=== PATIENT | male | born 1960 | race Caucasian/White ===

== ENCOUNTER → 2017-10-06 | Outpatient (CLI) | payer BC ==
[~2017-10-06] MED LIST: ALEV220T14 PO; HYDR-3516 PO; VITA10004 PO; VITA500C18 PO; ZANT150T2 PO
[2017-10-06 11:54] LABS: AUTOMATED NEUTROPHIL # 6.2 TH/MM3 (1.8-7.7); BASOPHIL % 0.5 % (0.0-2.0); EOSINOPHIL # 0.1 TH/MM3 (0-0.4); EOSINOPHIL % 1.1 % (0.0-4.0); HEMO FLAGS DIFF FINAL; LYMPH % 15.5 % (9.0-44.0); LYMPHOCYTE # 1.3 TH/MM3 (1.0-4.8); MEAN CELL VOLUME 87.6 FL (80.0-100.0); MEAN CORPUSCULAR HGB CONC 34.3 % (32.0-36.0); MONO % 10.2 % (0.0-8.0); NEUT % 72.7 % (16.0-70.0); PLATELET COUNT 189 TH/MM3 (150-450); RED BLOOD COUNT 5.82 MIL/MM3 (4.50-5.90); RED CELL DISTRIBUTION WIDTH 13.8 % (11.6-17.2); WHITE BLOOD COUNT 8.6 TH/MM3 (4.0-11.0)
[2017-10-06 11:57] LABS: BACTERIA, URINE RARE /hpf; BLOOD, URINE NEG (NEG); COMMENT (UR) CULT NOT INDICATED; CULTURE IF INDICATED CULT NOT INDICATED; GLUCOSE,URINE NEG (NEG); KETONE, URINE NEG (NEG); MUCUS URINE FEW /lpf (OCC); NITRITE,URINE NEG (NEG); URINE COLOR YELLOW (YELLW/STRAW)
[2017-10-06 12:06] LABS: APTT (PATIENT) 27.5 SEC (24.3-30.1); PROTHROMBIN TIME - PATIENT 11.4 SEC (9.8-11.6)
[2017-10-06 12:25] LABS: ANION GAP 8 MEQ/L (5-15); AST (GOT) 18 U/L (15-37); BICARBONATE 28.1 MEQ/L (21.0-32.0); BLOOD UREA NITROGEN 5 MG/DL (7-18); CHLORIDE 106 MEQ/L (98-107); GLOMERULAR FILTRATION RATE 70 ML/MIN (>89); GLUCOSE,FASTING 89 MG/DL (74-99); POTASSIUM 3.4 MEQ/L (3.5-5.1); SODIUM (NA) 142 MEQ/L (136-145)
[2017-10-06 12:28] LABS: ALKALINE PHOSPHATASE 95 U/L (45-117); ALT (GPT) 43 U/L (12-78)
--- NOTE | 2017-10-06 15:47 | RADRPT ---
EXAM DATE/TIME: 10/06/2017 11:51 This report includes an Addendum and supersedes previous reports for this exam. [place] COMPARISON: No previous studies available for comparison. INDICATIONS : Evaluate for communicable diseases, Pneumonia, and Pneumothorax. Preop Colon Resection MEDICAL HISTORY : None. SURGICAL HISTORY : None. ENCOUNTER: Initial ACUITY: 1 day PAIN SCORE: 0/10 LOCATION: Bilateral chest FINDINGS: PA and lateral views of the chest demonstrate the lungs to be symmetrically aerated without evidence of mass, infiltrate or effusion. The cardiomediastinal contours are unremarkable. Osseous structure s are intact. CONCLUSION: 1. No acute cardiopulmonary findings. Jonatan Hargrove MD on October 06, 2017 at 15:45 Board Certified Radiologist. This report was verified electronically. ADDENDUM: The conclusion of the examination was changed. It is now corrected. There are no acute cardiopulmonar y findings. Jonatan Hargrove MD on October 07, 2017 at 9:35 Board Certified Radiologist. This report was verified electronically.
--- NOTE | 2017-10-07 15:21 | EKG ---
Date Performed: 10/06/2017 Time Performed: 11:00:15 PTAGE: 57 years EKG: Sinus rhythm NORMAL ECG NO PREVIOUS TRACING DOCTOR: Remedios Aquino Interpretating Date/Time 10/07/2017 15:20:30
== END ==
LOC: CPRE 10:36
PROVIDERS: ATTEND Colon & Rectal Surgery
DX: Z01.810 Encounter for preprocedural cardiovascular examination (principal); Z01.811 Encounter for preprocedural respiratory examination; Z01.812 Encounter for preprocedural laboratory examination; Z79.01 Long term (current) use of anticoagulants; C18.9 Malignant neoplasm of colon, unspecified
CPT/HCPCS: 36415; 71020; 80053; 81001; 82378; 85025; 85610; 85730; 93005

== ENCOUNTER 2017-10-08 11:03 | Inpatient (IN) | payer BC, OTHER ==
[~2017-10-08] VITALS: Ht 154.9 cm; Wt 56.0 kg
[2017-10-08] VITALS (7 sets, daily range): BP systolic 132–142; BP diastolic 88–100; PULSE 81–117; RESP 17; TEMP 97.3; O2SAT 94–96
[~2017-10-08 11:03] MED LIST changes: -HYDR-3516 PO; -ZANT150T2 PO
--- NOTE | 2017-10-08 11:11 | PD.HP.UP ---
H&P Update Note The Pre-Admit History and Physical Examination regarding the above named patient was reviewed (including, but not limited to, vital signs, heart, lungs, co-morbid conditions), and upon re-examination it is noted that: the patient's condition has not significantly changed since the last examination. Lusi Okeefe MD Oct 08, 2017 11:11
[2017-10-08] MEDS ORDERED: POVIDONE IODINE 5% (ANTISEPSIS KIT) 4 APPLICATIONS EACH NARE PRN (12:45)
[2017-10-08] MEDS ORDERED: CHLORHEXIDINE GLUCONATE 2 % 1 PACK (2 CLOTHS) TOPICAL PRN (12:45)
[2017-10-08] MEDS ORDERED: METOPROLOL TARTRATE 25 MG TAB PO PRN (12:45)
[2017-10-08] MEDS ORDERED: LACTATED RINGER'S 1000 ML IV PRN (12:45)
[2017-10-08] MEDS ORDERED: ALVIMOPAN 12 MG CAPSULE - On Call PO SCH (12:45)
[2017-10-08] MEDS ORDERED: SODIUM CHLORID 0.9% 500 ML IV PRN (12:45)
[2017-10-08] MEDS ORDERED: INSULIN HUMAN REGULAR 1,000 UNITS/10 ML VIAL SQ PRN (12:45)
[2017-10-08] MEDS ORDERED: ZANT150T2 PO (12:50)
[2017-10-08] MEDS ORDERED: ceFAZolin 1,000 MG/NS 100 ML IV SCH ×2 (13:00)
[2017-10-08] MEDS ORDERED: METRONIDAZOLE 500 MG/100 ML ISONTONIC SOLN IV SCH (13:00)
[2017-10-08] MEDS ORDERED: BUPIVACAINE HCL PF 0.5% 30 ML VIAL ONE ×5 (13:00→14:23)
[2017-10-08] MEDS: ALVIMOPAN 12 MG CAPSULE - Post-op dosing PO SCH (13:12)
[2017-10-08] MEDS: D5-NS + KCL 20 MEQ INJ 1,000 ML IV SCH ×2 (16:01→21:00)
[2017-10-08] MEDS ORDERED: POTASSIUM CHLOR 40 MEQ PREMIX 100 ML IV PRN (16:15)
[2017-10-08] MEDS ORDERED: ENALAPRILAT 2.5 MG/2 ML VIAL IV PUSH PRN (16:15)
[2017-10-08] MEDS ORDERED: NALOXONE HCL 0.4 MG/ML AMP IV PUSH PRN (16:15)
[2017-10-08] MEDS ORDERED: POTASSIUM CHLOR 20 MEQ PREMIX 100 ML IV PRN (16:15)
[2017-10-08] MEDS ORDERED: ACETAMINOPHEN/HYDROcodone 325 MG/5 MG TAB PO PRN ×2 (16:15)
[2017-10-08] MEDS ORDERED: Post-op Orders (for Pharmacy) MISC XX ONE (16:15)
[2017-10-08] MEDS ORDERED: BUPIVACAINE HCL PF 0.5% 30 ML VIAL NB SCH (16:15)
[2017-10-08] MEDS ORDERED: ONDANSETRON HCL 4 MG/2 ML VIAL IV PUSH PRN (16:15)
[2017-10-08] MEDS ORDERED: ACETAMINOPHEN 325 MG TAB PO PRN (16:15)
[2017-10-08] MEDS ORDERED: BENZOCAINE 6 MG/MENTHOL 10 MG LOZENGE BUCCAL PRN (16:15)
[2017-10-08] MEDS ORDERED: *morphine SULFATE 8 MG/ML PERIprocedure ONLY ONE (16:33)
[2017-10-08] MEDS ORDERED: DO NOT ADM ANY ANTICOAGULANT DRUGS PRN (16:45)
[2017-10-08] MEDS: MORPHINE SULFATE 30 MG/30 ML PCA IV SCH (16:58)
[2017-10-08] MEDS: metroNIDAZOLE 500 MG INJ 100 ML IV SCH (20:58)
[2017-10-08] MEDS: METOCLOPRAMIDE HCL 10 MG/2 ML VIAL IVS SCH (20:58)
[2017-10-08] MEDS: DEXT 5%-NACL 0.9% 1000 ML INJ 1,000 ML IV SCH (21:00)
[2017-10-08] MEDS: PCA - TOTAL MG MORPHINE DELIVERED PER SHIFT SCH (22:00)
[2017-10-09] VITALS (24 sets, daily range): BP systolic 122–185; BP diastolic 85–99; PULSE 72–132; RESP 18–19; TEMP 96.4–99.2; O2SAT 93–97
[2017-10-09] MEDS: D5-NS + KCL 20 MEQ INJ 1,000 ML IV SCH ×3 (04:28→22:08)
[2017-10-09] MEDS: metroNIDAZOLE 500 MG INJ 100 ML IV SCH ×2 (04:28→12:45)
[2017-10-09] MEDS: DEXT 5%-NACL 0.9% 1000 ML INJ 1,000 ML IV SCH ×3 (04:45→21:00)
[2017-10-09] MEDS: PCA - TOTAL MG MORPHINE DELIVERED PER SHIFT SCH ×3 (06:00→21:03)
--- NOTE | 2017-10-09 07:36 | MP ---
cc: CHRIS DIEHL M.D. DATE OF SURGERY October 08, 2017. PREOPERATIVE DIAGNOSIS Carcinoma of the rectosigmoid. PROCEDURE 1. Exploratory laparotomy with proctosigmoidectomy, omental flap. 2. Repair of abdominal wall hernia. POSTOPERATIVE DIAGNOSIS 1. Carcinoma of the rectosigmoid. 2. Abdominal wall hernia. SURGEON Dr. Diehl ASSESSMENT Dr. Lion Zambrano PROCEDURE The patient was placed in the supine position. After adequate general anesthesia his legs were placed in [place] stirrups and supported appropriately. The abdomen and perineum were then prepped with Betadine solution and draped in the usual sterile fashion. With Dr. Zambrano's assistance the abdomen was opened through an infraumbilical transverse incision encountering mesh along the midportion of the incision around the umbilical area. The abdomen was opened caudal to the mesh taking down adhesions to the parietal peritoneum. Quite a few omental adhesions were present to the mesh inside the peritoneal cavity. Loops of bowel were also stuck to the mesh requiring somewhat of a tedious dissection. After complete mobilization and exploration of the abdominal cavity, revealed the tumor palpable just above the peritoneal reflection with some serosal puckering. The tumor was not adherent to any surrounding structures. The proximal colon was palpated very carefully and felt to be pretty unremarkable. Small bowel was run from the ligament Treitz down to the ileocecal valve and felt to be normal. The liver was without palpable masses. The gallbladder was unremarkable. The stomach and duodenum were normal. The great vessels were of normal caliber and fairly soft. First the sigmoid colon was mobilized medially by dividing along the white line of Toldt. The left ureter was identified and carefully preserved. Dissection then proceeded up the left gutter taking the left colon off the retroperitoneum up toward the splenic flexure. The right retroperitoneal space was then opened and the bowel dissected off the presacral fascia. The pedicle for the superior hemorrhoidal vessels was identified and divided between Digna's obtaining hemostasis with Vicryl ties. Dissection then proceeded down, elevating the bowel off the presacral fascia preserving the presacral nerves. At a point in the proximal rectum adequate distance below the tumor the mesorectum was taken with electrocautery and the bowel divided between a pursestring suture device and a Mehrdad clamp. The bowel was then sized to reach the rectal pouch without tension and with good blood supply dividing the marginal artery at the appropriate point. The bowel was then finally divided in the proximal sigmoid between a pursestring suture device and a Mehrdad clamp. The ends of the bowel were sized to accept a 33-mm EEA stapling anvil and this was secured with a pursestring suture. Dr. Zambrano inserted the stapling instrument transanally under direct vision; it was advanced up to the end of the rectal pouch and the pursestring suture tied. The stapler was then reassembled, aligned properly, the bowel aligned properly and stapler closed and fired. Upon withdrawal two complete doughnuts of tissue were seen. Gentle insufflation confirmed an airtight anastomosis. The abdomen was then irrigated copiously with normal saline. A section of the omentum was passed down the left gutter to wrap around the anastomosis. Attention was then turned to the abdominal wall. The previously placed intraperitoneal mesh was removed creating a defect in the transverse incision. Additional hernia was also noted cephalad to the incision line and the omentum was taken out of the hernia and the defect closed intraperitoneally with a running #1 PDS suture. The anterior skin flap was elevated off the anterior rectus fascia for mobilization. This enabled the abdominal wall be closed in two layers using #1 PDS sutures to reapproximate the respective fascial layers. Anteriorly there was quite a bit of scar tissue and fibrosis but the tissues came together nicely without tension. After complete two-layer closure, The subcutaneous tissue was irrigated copiously and the skin closed with interrupted 3-0 Vicryl suture in a subcuticular fashion. The wound area was washed with normal saline and dried, sterile dressing of Telfa and gauze applied. It should be noted that a Anthony-Vallejo drain was placed down into the pelvis and brought up through the stab wound in the right lower quadrant and secured to the skin with a nylon suture. The patient tolerated the procedure quite well and was brought to the recovery room in stable condition. Sponge and needle counts were correct at the end of the procedure. MD SABRINA Theodore/JEAN /10:50 PM /7:15 AM
[2017-10-09 08:35] LABS: AUTOMATED NEUTROPHIL # 13.6 TH/MM3 (1.8-7.7); HEMATOCRIT 42.6 % (39.0-51.0); HEMO FLAGS DIFF FINAL; LYMPH % 5.4 % (9.0-44.0); LYMPHOCYTE # 0.9 TH/MM3 (1.0-4.8); MEAN CELL VOLUME 86.8 FL (80.0-100.0); MEAN CORPUSCULAR HEMOGLOBIN 29.9 PG (27.0-34.0); MEAN CORPUSCULAR HGB CONC 34.5 % (32.0-36.0); MONO % 11.7 % (0.0-8.0); NEUT % 82.9 % (16.0-70.0); PLATELET COUNT 180 TH/MM3 (150-450); RED BLOOD COUNT 4.91 MIL/MM3 (4.50-5.90); RED CELL DISTRIBUTION WIDTH 13.9 % (11.6-17.2); WHITE BLOOD COUNT 16.4 TH/MM3 (4.0-11.0)
[2017-10-09] MEDS: PANTOPRAZOLE SODIUM 40 MG VIAL IVP SCH (09:00)
[2017-10-09] MEDS ORDERED: ALVIMOPAN 12 MG CAPSULE PO SCH (09:00)
--- NOTE | 2017-10-09 09:02 | HHI.PR ---
Subjective Remarks C/R Surg POD #1 afebrile, VSS UO good Objective - Vital Signs Date Time Temp Pulse Resp B/P (MAP) Pulse Ox O2 Delivery O2 Flow Rate FiO2 10/09/17 08:00 104 10/09/17 07:54 99.2 19 165/98 (120) 93 10/08/17 17:30 Nasal Cannula 2 Result Diagram: 10/09/17 0735 Objective Remarks PE alert Abd - soft, wound dry, min tympany A/P Assessment and Plan Imp: stable post-op OOB decr IVF tx to floor Luis Okeefe MD Oct 09, 2017 09:02
[2017-10-09] MEDS: METOCLOPRAMIDE HCL 10 MG/2 ML VIAL IVS SCH ×2 (09:08→21:03)
[2017-10-09] MEDS: PANTOPRAZOLE SOD 40 MG DELAYED RELEASE TAB PO SCH (09:08)
[2017-10-09] MEDS: KETOROLAC TROMETHAMINE 30 MG/ML (IVP) VIAL IVP PRN ×2 (09:08→15:21)
[2017-10-09 09:09] LABS: BICARBONATE 22.5 MEQ/L (21.0-32.0); POTASSIUM 3.3 MEQ/L (3.5-5.1)
[2017-10-09] MEDS: HEPARIN SODIUM - SQ 10,000 UNITS/ML VIAL SQ SCH ×2 (09:10→21:02)
[2017-10-09] MEDS: ENALAPRILAT 1.25 MG/ML VIAL IV PUSH PRN (09:53)
[2017-10-09] MEDS ORDERED: LORazepam 2 MG/ML VIAL IV PRN (10:45)
[2017-10-09] MEDS: FUROSEMIDE 20 MG/2 ML VIAL IV PUSH SCH ×2 (11:38→21:03)
[2017-10-09] MEDS: ALVIMOPAN 12 MG CAPSULE - Post-op dosing PO SCH (21:02)
[2017-10-10 04:08] VITALS: BP 156/87; PULSE 80; RESP 18; TEMP 97.5; O2SAT 96
[2017-10-10 04:09] LABS: AUTOMATED NEUTROPHIL # 10.1 TH/MM3 (1.8-7.7); BASOPHIL % 0.3 % (0.0-2.0); EOSINOPHIL % 0.1 % (0.0-4.0); HEMATOCRIT 41.3 % (39.0-51.0); HEMO FLAGS DIFF FINAL; LYMPH % 9.9 % (9.0-44.0); LYMPHOCYTE # 1.2 TH/MM3 (1.0-4.8); MEAN CELL VOLUME 88.2 FL (80.0-100.0); MEAN CORPUSCULAR HEMOGLOBIN 30.1 PG (27.0-34.0); MEAN CORPUSCULAR HGB CONC 34.1 % (32.0-36.0); MONO % 9.7 % (0.0-8.0); PLATELET COUNT 163 TH/MM3 (150-450); RED BLOOD COUNT 4.69 MIL/MM3 (4.50-5.90); RED CELL DISTRIBUTION WIDTH 13.9 % (11.6-17.2); WHITE BLOOD COUNT 12.6 TH/MM3 (4.0-11.0)
[2017-10-10 04:32] LABS: BICARBONATE 25.2 MEQ/L (21.0-32.0); POTASSIUM 3.6 MEQ/L (3.5-5.1)
[2017-10-10] MEDS: PCA - TOTAL MG MORPHINE DELIVERED PER SHIFT SCH ×3 (05:07→20:14)
[2017-10-10 08:00] VITALS: BP 141/91; PULSE 113; RESP 18; TEMP 98.1; O2SAT 91
[2017-10-10] MEDS: PANTOPRAZOLE SODIUM 40 MG VIAL IVP SCH (09:00)
[2017-10-10] MEDS: PANTOPRAZOLE SOD 40 MG DELAYED RELEASE TAB PO SCH (09:32)
[2017-10-10] MEDS: METOCLOPRAMIDE HCL 10 MG/2 ML VIAL IVS SCH ×2 (09:33→20:13)
[2017-10-10] MEDS: FUROSEMIDE 20 MG/2 ML VIAL IV PUSH SCH ×2 (09:33→20:16)
[2017-10-10] MEDS: ALVIMOPAN 12 MG CAPSULE - Post-op dosing PO SCH ×2 (09:33→20:13)
[2017-10-10] MEDS: HEPARIN SODIUM - SQ 10,000 UNITS/ML VIAL SQ SCH ×2 (09:34→20:14)
[2017-10-10] MEDS: KETOROLAC TROMETHAMINE 30 MG/ML (IVP) VIAL IVP PRN (09:43)
[2017-10-10 12:00] VITALS: BP 133/91; PULSE 99; RESP 18; TEMP 96.8; O2SAT 93
[2017-10-10] MEDS: SODIUM CHLOR 0.45% 1000 ML INJ 1,000 ML IV SCH (14:09)
[2017-10-10] MEDS: D5-NS + KCL 20 MEQ INJ 1,000 ML IV SCH (14:12)
[2017-10-10 16:00] VITALS: BP 135/88; PULSE 96; RESP 17; TEMP 97.3; O2SAT 97
--- NOTE | 2017-10-10 17:14 | HHI.PR ---
Subjective Remarks C/R Surg POD #2 afebrile, VSS UO good PATIENCE less +BM Objective - Vital Signs Date Time Temp Pulse Resp B/P (MAP) Pulse Ox O2 Delivery O2 Flow Rate FiO2 10/10/17 16:00 97.3 96 17 135/88 (104) 97 10/08/17 17:30 Nasal Cannula 2 Result Diagram: 10/10/17 0356 10/10/17 0356 Objective Remarks PE alert Abd - soft, wound dry, min tympany A/P Assessment and Plan Imp: OOB decr IVF adv diet Luis Okeefe MD Oct 10, 2017 17:14
[2017-10-10 20:00] VITALS: BP_SYST 160; BP_SYST 179; BP_DIAS 82; BP_DIAS 88; PULSE 104; RESP 18; TEMP 99.2; O2SAT 94
[2017-10-11] VITALS: BP_SYST 159; BP_SYST 160; BP_DIAS 93; PULSE 107; RESP 17; TEMP 98.6; O2SAT 92
[2017-10-11] MEDS: SODIUM CHLOR 0.45% 1000 ML INJ 1,000 ML IV SCH ×2 (03:19→20:28)
[2017-10-11 04:00] VITALS: BP 155/91; PULSE 86; RESP 17; TEMP 96.8; O2SAT 96
[2017-10-11] MEDS: PCA - TOTAL MG MORPHINE DELIVERED PER SHIFT SCH ×3 (05:13→20:35)
[2017-10-11 08:00] VITALS: BP 177/97; PULSE 89; RESP 18; TEMP 98.7; O2SAT 95
[2017-10-11] MEDS: PANTOPRAZOLE SODIUM 40 MG VIAL IVP SCH (08:17)
[2017-10-11] MEDS: METOCLOPRAMIDE HCL 10 MG/2 ML VIAL IVS SCH ×2 (08:21→20:28)
[2017-10-11] MEDS: FUROSEMIDE 20 MG/2 ML VIAL IV PUSH SCH ×2 (08:21→20:29)
[2017-10-11] MEDS: ENALAPRILAT 1.25 MG/ML VIAL IV PUSH PRN (08:21)
[2017-10-11] MEDS: PANTOPRAZOLE SOD 40 MG DELAYED RELEASE TAB PO SCH (08:21)
[2017-10-11] MEDS: ALVIMOPAN 12 MG CAPSULE - Post-op dosing PO SCH ×2 (08:21→20:28)
[2017-10-11] MEDS: HEPARIN SODIUM - SQ 10,000 UNITS/ML VIAL SQ SCH ×2 (08:22→20:28)
[2017-10-11 12:00] VITALS: BP 149/90; PULSE 106; RESP 20; TEMP 96.4; O2SAT 96
--- NOTE | 2017-10-11 14:21 | HHI.PR ---
Subjective Remarks POD#3 s/p LAR Comfortable, hungry Objective Vital Signs Date Time Temp Pulse Resp B/P (MAP) Pulse Ox O2 Delivery O2 Flow Rate FiO2 10/11/17 12:00 96.4 106 20 149/90 (109) 96 10/11/17 08:00 98.7 89 18 177/97 (123) 95 10/11/17 05:13 16 10/11/17 04:00 96.8 86 17 155/91 (112) 96 155/91 (112) 10/11/17 00:00 98.6 107 17 160/93 (115) 92 159/93 (115) 10/10/17 20:00 99.2 104 18 179/88 (118) 94 160/82 (108) 10/10/17 16:00 97.3 96 17 135/88 (104) 97 I/O 10/10/17 10/10/17 10/10/17 10/11/17 10/11/17 10/11/17 07:00 15:00 23:00 07:00 15:00 23:00 Intake Total 516 ml 1200 ml 240 ml Output Total 2230 ml 1110 ml 825 ml 900 ml Balance -1714 ml 90 ml -585 ml -900 ml Intake Oral 480 ml 240 ml IV Total 516 ml 720 ml Output Urine Total 2200 ml 1100 ml 800 ml 900 ml Drainage Total 30 ml 10 ml 25 ml # Voids 2 3 3 # Bowel Movements 1 0 Result Diagram: 10/10/17 0356 10/10/17 0356 Objective Remarks Abdomen soft, nondistended, tender Wound clean Assessment and Plan Assessment and Plan Doing well Try soft diet Becky Sierra MD Oct 11, 2017 14:21
[2017-10-11 16:00] VITALS: BP 161/94; PULSE 96; RESP 21; TEMP 98.6; O2SAT 98
[2017-10-11 20:00] VITALS: BP 137/93; PULSE 105; RESP 20; TEMP 98.2; O2SAT 95
[2017-10-12] VITALS: BP 151/87; PULSE 88; RESP 20; TEMP 98.4; O2SAT 93
[2017-10-12] MEDS: MORPHINE SULFATE 30 MG/30 ML PCA IV SCH (03:42)
[2017-10-12 04:00] VITALS: BP 158/93; PULSE 82; RESP 20; TEMP 98.2; O2SAT 94
[2017-10-12] MEDS: PCA - TOTAL MG MORPHINE DELIVERED PER SHIFT SCH ×2 (06:10→11:52)
[2017-10-12] MEDS: PANTOPRAZOLE SODIUM 40 MG VIAL IVP SCH (07:46)
[2017-10-12] MEDS: METOCLOPRAMIDE HCL 10 MG/2 ML VIAL IVS SCH (07:48)
[2017-10-12] MEDS: ALVIMOPAN 12 MG CAPSULE - Post-op dosing PO SCH (07:48)
[2017-10-12] MEDS: PANTOPRAZOLE SOD 40 MG DELAYED RELEASE TAB PO SCH (07:48)
[2017-10-12] MEDS: FUROSEMIDE 20 MG/2 ML VIAL IV PUSH SCH (07:48)
[2017-10-12] MEDS: HEPARIN SODIUM - SQ 10,000 UNITS/ML VIAL SQ SCH (07:48)
[2017-10-12 08:00] VITALS: BP 134/89; PULSE 95; RESP 18; TEMP 96.8; O2SAT 95
--- NOTE | 2017-10-12 11:09 | HHI.PR ---
Subjective Remarks POD#4 s/p LAR Comfortable, wants to go home Objective Vital Signs Date Time Temp Pulse Resp B/P (MAP) Pulse Ox O2 Delivery O2 Flow Rate FiO2 10/12/17 08:00 96.8 95 18 134/89 (104) 95 10/12/17 06:10 18 10/12/17 04:00 98.2 82 20 158/93 (114) 94 10/12/17 03:42 18 10/12/17 00:00 98.4 88 20 151/87 (108) 93 10/11/17 20:35 18 10/11/17 20:00 98.2 105 20 137/93 (108) 95 10/11/17 16:00 98.6 96 21 161/94 (116) 98 10/11/17 14:00 14 10/11/17 12:00 96.4 106 20 149/90 (109) 96 I/O 10/11/17 10/11/17 10/11/17 10/12/17 10/12/17 10/12/17 07:00 15:00 23:00 07:00 15:00 23:00 Intake Total 240 ml 2200 ml 1520 ml Output Total 825 ml 900 ml 440 ml 1880 ml Balance -585 ml -900 ml 1760 ml -360 ml Intake Oral 240 ml 1200 ml 960 ml IV Total 1000 ml 560 ml Output Urine Total 800 ml 900 ml 400 ml 1850 ml Drainage Total 25 ml 40 ml 30 ml # Voids 3 3 # Bowel Movements 1 Result Diagram: 10/10/17 0356 10/10/17 0356 Objective Remarks Abdomen soft, nondistended, tender Wound clean Assessment and Plan Assessment and Plan Doing well d/c PATIENCE Home today Becky Sierra MD Oct 12, 2017 11:09
[2017-10-12] MEDS ORDERED: HYDR-3516 PO (11:12)
[2017-10-12 11:52] VITALS: RESP 14
[2017-10-12] MEDS: SODIUM CHLOR 0.45% 1000 ML INJ 1,000 ML IV SCH (11:52)
== END 2017-10-12 13:36 | disposition home or self-care (01) | DRG 330 ==
LOC: HSDI 11:03 → HCIS 17:47 → N07B 10-09 15:59
PROVIDERS: ADMIT Colon & Rectal Surgery; ATTEND Colon & Rectal Surgery
PROC: 0DBP0ZZ Excision of Rectum, Open Approach (ICD-10-PCS; 2017-10-08)
PROC: 0WUF07Z Supplement Abdominal Wall with Autologous Tissue Substitute, Open Approach (ICD-10-PCS; 2017-10-08)
PROC: 0WQF0ZZ Repair Abdominal Wall, Open Approach (ICD-10-PCS; 2017-10-08)
PROC: 0DBN0ZZ Excision of Sigmoid Colon, Open Approach (ICD-10-PCS; principal; 2017-10-08 13:22)
DX: C18.9 Malignant neoplasm of colon, unspecified (principal); C19 Malignant neoplasm of rectosigmoid junction; K43.9 Ventral hernia without obstruction or gangrene; K66.0 Peritoneal adhesions (postprocedural) (postinfection)
CPT/HCPCS: 80048; 83605; 85025; 88307; 88309; 94150; J0690; J1644; J1885; J1940; J2270; J2765; J3480